=== PATIENT | male | born 1990 | race American Indian/Alaskan Native ===

== ENCOUNTER 2020-01-01 04:27 | Emergency (ER) | payer SELFPAY ==
[2020-01-01 04:41] VITALS: BP 132/73
[2020-01-01] MEDS ORDERED: SODIUM CHLORIDE 0.9% 1000 ML 1,000 ML IV ONE (05:37)
[2020-01-01] MEDS ORDERED: MORPHINE 4 MG/1 ML INJ IV ONE (05:37)
[2020-01-01] MEDS ORDERED: ONDANSETRON 4 MG/2 ML INJ IV ONE (05:37)
--- NOTE | 2020-01-01 06:21 | Emergency Department Report ---
Blank Doc - Documentation Documentation: This is a 29-year-old male that presents with left perianal swelling and redne ss. 1- This initial assessment/diagnostic orders/clinical plan/ treatment(s) is/are subject to change based on pt's health status, clinical progression and re- assessment by fellow clinical providers in the ED. Further treatment and workup at subsequent clinical provers discretion. Patient/guardians urged not to elope from ED as their condition may be serious if not clinically assessed and managed . 2-labs 3-CT r/o perianal abscess 4-IV treatment w/ pain medications
[2020-01-01 06:31] LABS: Basophils # (Auto) 0.1 K/mm3 (0.0-0.1); Basophils % (Auto) 0.7 % (0.0-1.8); Eosinophils # (Auto) 0.1 K/mm3 (0.0-0.4); Eosinophils % (Auto) 1.1 % (0.0-4.3); Hemoglobin 14.5 gm/dl (11.8-15.2); Lymphocytes % (Auto) 17.3 % (13.4-35.0); Mean Corpuscular HGB Conc 33 % (32-34); Mean Corpuscular Volume 98 fl (84-94); Monocytes # (Auto) 1.3 K/mm3 (0.0-0.8); Monocytes % (Auto) 11.2 % (0.0-7.3); Platelet Count 391 K/mm3 (140-440); Red Cell Distribution Width 12.7 % (13.2-15.2)
[2020-01-01 06:52] LABS: Alanine Aminotransferase 17 units/L (7-56); Albumin 4.5 g/dL (3.9-5); BUN/Creatinine Ratio 18; Blood Urea Nitrogen 14 mg/dL (9-20); Calcium 9.8 mg/dL (8.4-10.2); Hemolysis Index 3
--- NOTE | 2020-01-01 07:55 | Cat Scan Report ---
CT pelvis w con INDICATION: Rectal pain and swelling, possible abscess. TECHNIQUE: All CT scans at this location are performed using the following dose modulation technique: Automated exposure control. CONTRAST: IV COMPARISON: None available. FINDINGS: Evaluation of the pelvis demonstrates no mass, fluid collection or inflammation. The imaged bowel is not dilated or thickened. A normal appendix is identified. Thickening is present at the medial aspect of the right gluteal tissues measuring approximately 3.3 x 1.2 cm. A small amount of internal low density is present measuring approximately 1.8 x 0.6 cm. IMPRESSION: Inflammation of the medial right buttock with small internal abscess. Signer Name: Alhaji Zhang MD Signed: 01/01/2020 7:50 AM Workstation Name: [id number]
[2020-01-01] MEDS ORDERED: KETOROLAC 30 MG/1 ML INJ IV ONE (08:43)
--- NOTE | 2020-01-01 09:47 | Emergency Department Report ---
- General Chief complaint: Skin/Abscess/Foreign Body Stated complaint: BACK AND RECTAL PAIN Time Seen by Provider: 01/01/20 05:33 Source: patient Mode of arrival: Ambulatory Limitations: No Limitations - History of Present Illness Initial comments: 29-year-old -[place] male [facility] emerge department complaining of painful abscess to his left buttocks which is been present for the last few days and beginning to drain yesterday. Pain is dull and throbbing worse with palpation and certain positions. He reports no rectal complications reports no constipation reports no rectal penetration he reports no recent gluteal injections. No fever, chills, sweats no chest pain no palpitations no known history of any MRSA or anemia or any immunocompromising processes MD complaint: abscess/boil Quality: dull Consistency: constant Improves with: none Worsens with: none Context: none Treatments Prior to Arrival: none - Related Data Previous Rx's Medication Instructions Recorded Last Taken Type Chlorhexidine Gluconate [Hibiclens] 5 ml TP BID #240 liquid 01/01/20 Unknown Rx Mupirocin [Bactroban 2%] 1 applic TP TID #1 tube 01/01/20 Unknown Rx Sulfamethoxazole/Trimethoprim 1 each PO BID #20 tablet 01/01/20 Unknown Rx [Bactrim DS TAB] Allergies Allergy/AdvReac Type Severity Reaction Status Date / Time No Known Allergies Allergy Unverified 01/01/20 04:35 Abscess Boil HPI - HPI Chief Complaint: Skin/Abscess/Foreign Body Stated Complaint: BACK AND RECTAL PAIN Time Seen by Provider: 01/01/20 05:33 Home Medications: Previous Rx's Medication Instructions Recorded Last Taken Type Chlorhexidine Gluconate [Hibiclens] 5 ml TP BID #240 liquid 01/01/20 Unknown Rx Mupirocin [Bactroban 2%] 1 applic TP TID #1 tube 01/01/20 Unknown Rx Sulfamethoxazole/Trimethoprim 1 each PO BID #20 tablet 01/01/20 Unknown Rx [Bactrim DS TAB] Allergies/Adverse Reactions: Allergies Allergy/AdvReac Type Severity Reaction Status Date / Time No Known Allergies Allergy Unverified 01/01/20 04:35 ED Review of Systems ROS: Stated complaint: BACK AND RECTAL PAIN Other details as noted in HPI Comment: All other systems reviewed and negative ED Past Medical Hx - Past Medical History Previous Medical History?: No - Surgical History Past Surgical History?: No - Social History Smoking Status: Never Smoker Substance Use Type: None - Medications Home Medications: Home Medications Medication Instructions Recorded Confirmed Last Taken Type Chlorhexidine Gluconate [Hibiclens] 5 ml TP BID #240 liquid 01/01/20 Unknown Rx Mupirocin [Bactroban 2%] 1 applic TP TID #1 tube 01/01/20 Unknown Rx Sulfamethoxazole/Trimethoprim 1 each PO BID #20 tablet 01/01/20 Unknown Rx [Bactrim DS TAB] ED Physical Exam - General Limitations: No Limitations General appearance: alert, in no apparent distress - Head Head exam: Present: atraumatic, normocephalic, normal inspection - Eye Eye exam: Present: normal appearance, PERRL, EOMI Pupils: Present: normal accommodation - ENT ENT exam: Present: normal exam, mucous membranes moist, TM's normal bilaterally - Neck Neck exam: Present: normal inspection, full ROM. Absent: tenderness, meningismus, lymphadenopathy - Respiratory Respiratory exam: Present: normal lung sounds bilaterally. Absent: respiratory distress, wheezes, rales, accessory muscle use, decreased breath sounds - Cardiovascular Cardiovascular Exam: Present: regular rate, normal rhythm. Absent: systolic murmur, diastolic murmur, rubs, gallop - GI/Abdominal GI/Abdominal exam: Present: soft, normal bowel sounds - Rectal Rectal exam: Present: deferred - Extremities Exam Extremities exam: Present: normal inspection, normal capillary refill - Back Exam Back exam: Present: normal inspection. Absent: CVA tenderness (R), CVA tenderness (L) - Neurological Exam Neurological exam: Present: alert, oriented X3, CN II-XII intact, normal gait - Psychiatric Psychiatric exam: Present: normal affect, normal mood - Skin Skin exam: Present: warm, other (abscess). Absent: rash ED Course Vital Signs 01/01/20 04:34 Temperature 98.3 F Pulse Rate 67 Respiratory 20 Rate Blood Pressure 132/73 O2 Sat by Pulse 94 Oximetry - I & D Buttocks Type of Procedure: Complex Site: right gluteal Blade Size: 11 I & D Procedure: betadine prep Progress: 29-year-old F [place] male placed in a supine supine position. He was prepped and draped sterile fashion anesthesia achieved with 2% to 2% lidocaine with no epinephrine. #11 blade was used to make a T incision with moderate amount of pus evacuated from the abscess and it was evacuated with a Yankauer suction and then irrigated with 100 cc of normal saline. Estimated blood loss was less than 5 cc and and the procedure was tolerated well he was dressed with aseptic band ED Medical Decision Making - Lab Data Result diagrams: 01/01/20 05:56 01/01/20 05:56 Critical care attestation.: If time is entered above; I have spent that time in minutes in the direct care of this critically ill patient, excluding procedure time. ED Disposition Clinical Impression: Abscess, Encounter for incision and drainage procedure Disposition: TO HOME OR SELFCARE Is pt being admited?: No Does the pt Need Aspirin: No Condition: Stable Instructions: Incision and Drainage (ED), Acute Wound Care (ED), Abscess Incision and Drainage (ED) Prescriptions: Sulfamethoxazole/Trimethoprim [Bactrim DS TAB] 1 each PO BID #20 tablet Mupirocin [Bactroban 2%] 1 applic TP TID #1 tube Chlorhexidine Gluconate [Hibiclens] 5 ml TP BID #240 liquid Referrals: PRIMARY CARE, [Primary Care Provider] - 3-5 Days [facility] [Provider Group] - 3-5 Days
== END 2020-01-01 10:49 | disposition home or self-care (01) ==
LOC: ED 04:27
DX: L02.91 Cutaneous abscess, unspecified (principal); Z79.899 Other long term (current) drug therapy; Z76.89 Persons encountering health services in other specified circumstances
CPT/HCPCS: 10060; 36415; 72193; 80053; 85025; 96361; 96365; 96375; 99284; J1885; J2270; J2405; J7030; Q9967